=== PATIENT | male | born 1975 | race American Indian/Alaskan Native ===

== ENCOUNTER 2019-04-29 08:11 | Emergency (ER) | payer SELFPAY ==
[2019-04-29 08:18] VITALS: BP 135/76
--- NOTE | 2019-04-29 09:15 | Emergency Department Report ---
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 Patient states she's had this for about 2-3 weeks and is progressively getting worse. Patient states that this is a sharp pain that radiates down his right thigh. Patient also states that for the past month he is at this bump on the back of his scalp does gotten bigger and feels like there is fluid in it. Patient states he began itching. To go which she messed with it by scratching it and getting abrasion on it. Patient states is gone at bit bigger than they started a month ago and wants it evaluated. He denies any headache, head injury or trauma. 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 Patient states he resides in [place] - Related Data Previous Rx's Medication Instructions Recorded Last Taken Type Clindamycin [Clindamycin CAP] 300 mg PO Q8H #30 cap 04/29/19 Unknown Rx Gabapentin 300 mg PO BID #20 cap 04/29/19 Unknown Rx Ibuprofen [Motrin] 800 mg PO Q8HR #30 tablet 04/29/19 Unknown Rx Allergies Allergy/AdvReac Type Severity Reaction Status Date / Time No Known Allergies Allergy Unverified 04/29/19 08:13 ED Review of Systems ROS: Stated complaint: BACK PAIN Other details as noted in HPI Comment: All other systems reviewed and negative ED Past Medical Hx - Past Medical History Previous Medical History?: No - Surgical History Past Surgical History?: No - Social History Smoking Status: Never Smoker Substance Use Type: None - Medications Home Medications: Home Medications Medication Instructions Recorded Confirmed Last Taken Type Clindamycin [Clindamycin CAP] 300 mg PO Q8H #30 cap 04/29/19 Unknown Rx Gabapentin 300 mg PO BID #20 cap 04/29/19 Unknown Rx Ibuprofen [Motrin] 800 mg PO Q8HR #30 tablet 04/29/19 Unknown Rx ED Physical Exam - General Limitations: Physical Limitation General appearance: alert, in no apparent distress - Head Head exam: Present: atraumatic, normocephalic, other (about 5 cm raised non tender flactullant lesion on back scalp.) - Eye Eye exam: Present: normal appearance, PERRL Pupils: Present: normal accommodation - ENT ENT exam: Present: mucous membranes moist - Neck Neck exam: Present: normal inspection - Respiratory Respiratory exam: Present: normal lung sounds bilaterally. Absent: respiratory distress - Cardiovascular Cardiovascular Exam: Present: regular rate, normal rhythm. Absent: systolic murmur, diastolic murmur, rubs, gallop - GI/Abdominal GI/Abdominal exam: Present: soft, normal bowel sounds - Rectal Rectal exam: Present: deferred - Extremities Exam Extremities exam: Present: normal inspection, full ROM, other (SLR positive on right). Absent: calf tenderness - Back Exam Back exam: Present: normal inspection, full ROM. Absent: tenderness, CVA tenderness (R), CVA tenderness (L), paraspinal tenderness, vertebral tenderness - Neurological Exam Neurological exam: Present: alert, oriented X3, normal gait - Psychiatric Psychiatric exam: Present: normal affect, normal mood - Skin Skin exam: Present: warm, dry, intact, normal color. Absent: rash ED Course Vital Signs 04/29/19 08:16 Temperature 97.5 F L Pulse Rate 72 Respiratory 18 Rate Blood Pressure 135/76 O2 Sat by Pulse 97 Oximetry ED Medical Decision Making - Medical Decision Making 44-year-old male presents with right-sided sciatica. Patient also had a noninfected fluctuant lesion to the scalp. His lesion was drained with about 12 mL of pus and blood drainage using 18- gauge needle and two 6 mL syringes. he tolerated procedure without any problems. Fluctuant lesion decreased in size after draining. Discussed with the patient to apply heat therapy to his canal 3 times a day. Discussed follow-up within a week Patient also received pain medication in the ED and some steroids for sciatic pain. Discussed follow-up with neurologist. Referral given. Patient is in no acute distress patient has no neurologic deficit. Critical care attestation.: If time is entered above; I have spent that time in minutes in the direct care of this critically ill patient, excluding procedure time. ED Disposition Clinical Impression: Sciatic leg pain, Right sciatic nerve pain, Lipoma of scalp Disposition: TO HOME OR SELFCARE Is pt being admited?: No Does the pt Need Aspirin: No Condition: Stable Instructions: Sciatica (ED), Lumbar Radiculopathy (ED) Additional Instructions: Make sure to follow up with the primary care physician as discussed. Findings a neurologist in your area in [place] and follow-up with a neurologist concerning his sciatic nerve pain Take all your medications as you've been prescribed. take medication while not driving If you have any worsening symptoms or develop new symptoms please return to ED immediately. Prescriptions: Clindamycin [Clindamycin CAP] 300 mg PO Q8H #30 cap Gabapentin 300 mg PO BID #20 cap Ibuprofen [Motrin] 800 mg PO Q8HR #30 tablet Referrals: CARRI COONEY MD [Staff Physician] - 3-5 Days Forms: Accompanied Note, Work/School Release Form(ED) Time of Disposition: 10:04
[2019-04-29] MEDS ORDERED: KETOROLAC 30 MG/1 ML INJ IM ONE (09:18)
[2019-04-29] MEDS ORDERED: cephALEXin 500 MG CAP PO ONE (09:18)
[2019-04-29] MEDS ORDERED: dexAMETHasone 20 MG/5 ML VIAL IM ONE (09:18)
== END 2019-04-29 11:08 | disposition home or self-care (01) ==
LOC: ED 08:11
DX: D17.0 Benign lipomatous neoplasm of skin and subcutaneous tissue of head, face and neck (principal); G58.8 Other specified mononeuropathies
CPT/HCPCS: 10160; 96372; 99283; J1100; J1885